=== PATIENT | female | born 1945 | race African-American/Black ===

== ENCOUNTER 2021-07-23 14:03 | Outpatient (CLI) | payer MEDICARE, SELFPAY ==
--- NOTE | ~2021-07-23 | MM_ITS ---
EXAMINATION: MM screening alessia BI w shannan HISTORY: Screening mammogram, history of left breast cancer TECHNIQUE: Craniocaudal and mediolateral oblique 3-D tomosynthesis images were obtained and synthetic 2-D images were generated. CAD analysis was submitted and interpreted. COMPARISON: 12/13/2010 BREAST PARENCHYMAL COMPOSITION: There are scattered areas of fibroglandular density. FINDINGS: RIGHT BREAST: There is a mass with dystrophic calcification posterior third of the upper breast, cons istent with a fibroadenoma. There is no evidence of suspicious mass, calcification, or architectural distortion to suggest malignancy. There has been no suspicious interval change. LEFT BREAST: There is a 2.9 x 2.4 cm mass anterior third of the upper breast at the 12:00 location 9 cm from the nipple surrounding architectural distortion is noted. There are also subtle associated ca lcifications. IMPRESSION: 1. Left breast mass which could reflect postsurgical change and the patient's baseline however recurr ent malignancy is a consideration. Comparison with interval mammograms is necessary. BI-RADS Category 0: Incomplete: Needs comparison with prior mammograms. Reviewed, dictated and finalized at location A. [employer] IMPRESSION: 1. Left breast mass which could reflect postsurgical change and the patient's b aseline however recurrent malignancy is a consideration. Comparison with interv al mammograms is necessary. BI-RADS Category 0: Incomplete: Needs comparison with prior mammograms.
== END 2021-07-23 14:04 | disposition home or self-care (01) ==
PROVIDERS: Visit Provider Obstetrics & Gynecology
DX: Z12.31 Encounter for screening mammogram for malignant neoplasm of breast (principal); R92.8 Other abnormal and inconclusive findings on diagnostic imaging of breast
CPT/HCPCS: 77063; 77067